=== PATIENT | male | born 1955 | race Hispanic/Latino ===

== ENCOUNTER → 2019-05-06 | Outpatient (CLI) | payer OTHER ==
[~2019-05-06] MED LIST: ASPI-555 PO; ATOR40TA71 PO; CLOP75TA32 PO; GLIM4TAB5 PO; ISOS30TA6 PO; LEVO100T12 PO; METF-446 PO; METO-391 PO; NITR0.4T50 SL
== END | disposition home or self-care (01) ==
LOC: OIH 15:59
PROVIDERS: ATTEND Internal Medicine
DX: J20.9 Acute bronchitis, unspecified (principal)
CPT/HCPCS: 71046

== ENCOUNTER → 2019-06-13 | Outpatient (CLI) | payer OTHER ==
[~2019-06-13] MED LIST changes: +GLIM4TAB36 PO; -GLIM4TAB5 PO
== END | disposition home or self-care (01) ==
LOC: SHCH 09:24
PROVIDERS: ATTEND Internal Medicine Cardiovascular Disease
DX: I65.23 Occlusion and stenosis of bilateral carotid arteries (principal); I25.83 Coronary atherosclerosis due to lipid rich plaque
CPT/HCPCS: 93880

== ENCOUNTER → 2020-01-24 | Outpatient (CLI) | payer OTHER ==
[~2020-01-24] MED LIST changes: -ASPI-555 PO; +ASPI-556 PO
== END | disposition home or self-care (01) ==
LOC: OIH 11:33
PROVIDERS: ATTEND Internal Medicine
DX: M47.814 Spondylosis without myelopathy or radiculopathy, thoracic region (principal); M48.04 Spinal stenosis, thoracic region; I10 Essential (primary) hypertension
CPT/HCPCS: 71046; 72070